=== PATIENT | female | born 1980 | race African-American/Black ===

== ENCOUNTER 2017-05-13 15:13 | Outpatient (CLI) | payer OTHER ==
[2017-05-17 20:40] LABS: Chlamydia by PCR Inconclusive (NotDetected); GC by PCR Inconclusive (NotDetected)
== END 2017-05-13 15:14 | disposition home or self-care (01) ==
LOC: MADLABBHPM 15:13
PROVIDERS: ATTEND Family Medicine
DX: N89.8 Other specified noninflammatory disorders of vagina (principal)
CPT/HCPCS: 87480; 87491; 87510; 87591; 87660